=== PATIENT | female | born 1965 ===

== ENCOUNTER → 2017-09-08 | Outpatient (CLI) | payer BC ==
--- NOTE | 2017-09-08 16:07 | RADIOLOGY IMAGING REPORT ---
FACILITY: [facility] PATIENT NAME: Virgie Mcmillan : 1965 MR: [id number] V: [id number] EXAM DATE: ORDERING PHYSICIAN: APRIL DICKERSON TECHNOLOGIST: Location: [facility] Patient: Virgie Mcmillan : 1965 Visit/Account:[id number] Date of Sevice: 09/08/2017 Exam type: CHEST PA AND LAT History: Cough, shortness of breath Comparison: None. Findings: Both lungs are well-expanded and clear. There is no focal consolidation, pleural effusion or pneumot horax. Heart size is upper limits of normal. The osseous structures are unremarkable. IMPRESSION: 1. No acute cardiopulmonary disease. Report Dictated By: Garret Caputo MD at 09/08/2017 4:03 PM Report E-Signed By: Garret Caputo MD at 09/08/2017 4:04 PM WSN:[id number]
== END ==
LOC: RAD 14:47
PROVIDERS: ATTEND Family Medicine
DX: R05 Cough (principal)
CPT/HCPCS: 36415; 71046; 87040

== ENCOUNTER → 2017-09-15 | Outpatient (CLI) | payer BC ==
--- NOTE | 2017-09-15 15:56 | EKG ---
FAC[place] [facility] [place]IENT NAME: RICARDO HAIR : [id number] MR: [id number] V: [id number] EXAM DATE: ORDERING PHYSICIAN: JENNI MESA TECHNOLOGIST: MIKE Gonzales Reason : PRE-OP Blood Pressure : / mmHG Vent. Rate : 076 BPM Atrial Rate : 076 BPM P-R Int : 144 ms QRS Dur : 088 ms QT Int : 408 ms P-R-T Axes : 077 081 066 degrees QTc Int : 459 ms Sinus rhythm No acute appearing findings No previous ECGs available Confirmed by SHAR VICTOR ([id number]) on 09/16/2017 5:21:57 AM Referred By: JENNI MESA Confirmed By:SHAR VICTOR
== END ==
LOC: LAB 15:34
PROVIDERS: ATTEND Obstetrics & Gynecology Gynecologic Oncology
DX: R19.00 Intra-abdominal and pelvic swelling, mass and lump, unspecified site (principal)
CPT/HCPCS: 36415; 82310; 82374; 82435; 82565; 82947; 84132; 84295; 84520; 85027; 86304; 93005

== ENCOUNTER → 2017-12-10 | Outpatient (REF) | payer BC | LOC: ZZSENDIN 17:25 | PROVIDERS: ATTEND Obstetrics & Gynecology | DX: Z79.899 Other long term (current) drug therapy (principal) | CPT/HCPCS: 84443 ==

== ENCOUNTER 2018-01-20 18:41 | Emergency (ER) | payer BC ==
[2018-01-20 19:00] VITALS: BP 125/81
[2018-01-20] MEDS ORDERED: LEVO-3 PO (19:04)
[2018-01-20] MEDS ORDERED: PANT40TA65 PO (19:04)
[2018-01-20] MEDS ORDERED: BUPR-474 PO (19:09)
[2018-01-20] MEDS ORDERED: METO-233 PO (19:10)
[2018-01-20] MEDS ORDERED: METF-421 PO (19:10)
[2018-01-20] MEDS ORDERED: ALPR-429 PO (19:11)
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
[2018-01-20] MEDS ORDERED: CYCL10TA29 PO (20:08)
[2018-01-20] MEDS ORDERED: HYDR-385 PO (20:08)
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
== END 2018-01-20 20:25 | disposition home or self-care (01) ==
LOC: ER 18:59
DX: S16.1XXA Strain of muscle, fascia and tendon at neck level, initial encounter (principal); V43.52XA Car driver injured in collision with other type car in traffic accident, initial encounter
CPT/HCPCS: 72050; 72072; 99282

== ENCOUNTER → 2019-01-25 | Outpatient (CLI) | payer BC, OTHER ==
[~2019-01-25] MED LIST: ALPR-429 PO; BUPR-474 PO; CYCL10TA29 PO; HYDR-385 PO; LEVO-3 PO; METF-452 PO; METO-233 PO; PANT40TA65 PO
--- NOTE | 2019-01-25 16:29 | EKG ---
FACILITY: [facility] - [place] PATIENT NAME: RICARDO HAIR : [id number] MR: [id number] V: [id number] EXAM DATE: ORDERING PHYSICIAN: APRIL PULIDO TECHNOLOGIST: MACI Gonzales Reason : PREOP Blood Pressure : / mmHG Vent. Rate : 080 BPM Atrial Rate : 080 BPM P-R Int : 136 ms QRS Dur : 090 ms QT Int : 406 ms P-R-T Axes : 058 063 053 degrees QTc Int : 468 ms Sinus rhythm Decreased R wave progression anterior leads No acute appearing findings No previous ECGs available Confirmed by SHAR VICTOR ([id number]) on 01/25/2019 9:34:53 PM Referred By: ASHOK Confirmed By:SHAR VICTOR
[2019-01-25 16:34] LABS: PLATELET COUNT, AUTOMATED 352 K/uL (150-450)
== END ==
LOC: LAB 15:55
PROVIDERS: ATTEND Anesthesiology
DX: Z01.812 Encounter for preprocedural laboratory examination (principal); Z01.810 Encounter for preprocedural cardiovascular examination; M75.91 Shoulder lesion, unspecified, right shoulder
CPT/HCPCS: 36415; 82040; 82247; 82310; 82374; 82435; 82565; 82947; 83036; 84075; 84132; 84155; 84295; 84443; 84450; 84460; 84520; 85025; 93005